=== PATIENT | female | born 1945 | race Two or more races ===

== ENCOUNTER 2019-05-15 09:52 | Outpatient (CLI) | payer OTHER | END 2019-05-15 09:58 | disposition home or self-care (01) | LOC: SONOGRAMA 09:52 | DX: E04.1 Nontoxic single thyroid nodule (principal) ==

== ENCOUNTER → 2020-09-09 | Outpatient (CLI) | payer OTHER | END | disposition home or self-care (01) | LOC: MAMO-SONO 09:00 | DX: E04.2 Nontoxic multinodular goiter (principal) ==

== ENCOUNTER → 2020-09-18 | Outpatient (CLI) | payer OTHER | END | disposition home or self-care (01) | LOC: RAD 13:13 | PROVIDERS: ATTEND Internal Medicine Pulmonary Disease | DX: J32.8 Other chronic sinusitis (principal); R05 Cough; J31.0 Chronic rhinitis; J44.9 Chronic obstructive pulmonary disease, unspecified ==

== ENCOUNTER 2020-10-14 12:59 | Outpatient (CLI) | payer OTHER | END 2020-10-14 13:04 | disposition home or self-care (01) | LOC: LAB 12:59 | PROVIDERS: ATTEND Internal Medicine Pulmonary Disease | DX: J45.20 Mild intermittent asthma, uncomplicated (principal) ==